=== PATIENT | male | born 1945 | race Caucasian/White ===

== ENCOUNTER 2024-05-04 07:55 | Day surgery (SDC) | payer MEDICARE, BC ==
[2024-04-30 12:21] LABS: BASOPHILS % (AUTO) 0.1 % (0-1); LYMPHOCYTES # (AUTO) 1.8 X10'3 (1.1-4.8); LYMPHOCYTES % (AUTO) 40.6 % (21-51); MEAN CORPUSCULAR HEMOGLOBIN 32.9 PG (27.0-31.0); MEAN CORPUSCULAR HGB CONC 33.8 g/dL (33.0-36.5); MEAN CORPUSCULAR VOLUME 97.3 FL (78-98); MEAN PLATELET VOLUME 6.7 FL (7.4-10.4); MONOCYTES # (AUTO) 0.3 X10'3 (0-0.9); MONOCYTES % (AUTO) 7.2 % (2-12); NEUTROPHILS # (AUTO) 2.3 X10'3 (1.8-7.7); NEUTROPHILS % (AUTO) 51.1 % (42-75); PRE OP HEMATOCRIT 37.8 % (42.0-52.0); PRE OP HEMOGLOBIN 12.8 g/dL (14.0-17.9); PRE OP PLATELET COUNT 160 X10'3 (140-440); PRE OP WHITE BLOOD COUNT 4.4 10'3 (4.8-10.8); RED BLOOD COUNT 3.89 X10'6 (4.70-6.10); RED CELL DISTRIBUTION WIDTH 13.5 % (11.5-14.5)
[2024-04-30 12:49] LABS: ALBUMIN 3.9 G/DL (3.4-5.0); ALBUMIN/GLOBULIN RATIO 1.1 (1.1-1.5); ALKALINE PHOSPHATASE 69 IU/L (46-116); BLOOD UREA NITROGEN 27 MG/DL (7-18); BUN/CREATININE RATIO 22.1 (10.0-20.0); CALCIUM 8.6 MG/DL (8.5-10.1); CHLORIDE 109 MMOL/L (99-107); CREATININE 1.22 MG/DL (0.60-1.10); PRE OP ALT 24 U/L (30-65); PRE OP ANION GAP 7 (8-16); PRE OP AST 11 U/L (10-37); PRE OP BILIRUB, TOTAL 0.5 MG/DL (0.0-1.0); PRE OP GLUCOSE 115 MG/DL (70-104); PRE OP POTASSIUM 4.5 MMOL/L (3.4-5.1); PRE OP SODIUM 142 MMOL/L (135-145); TOTAL CARBON DIOXIDE 26.2 MMOL/L (24-32); TOTAL PROTEIN 7.3 G/DL (6.4-8.2); eGFR 57 ML/MIN
[~2024-05-04] VITALS: Ht 177.8 cm; Wt 95.7 kg
[2024-05-04] MEDS: DOCUMENT DATE & TIME OF BETA-BLOCKER PO ONE (05:30)
[~2024-05-04 07:55] MED LIST: APIX5TAB3 PO; DOXA4TAB94 PO; LOSA-416 PO; NEBI5TAB9 PO; famotidine 20mg tablet PO ONE; ringers solution, lacted 1,000 ML IV SCH
[2024-05-04] MEDS ORDERED: LIDOcaine 2% (20mg/ml) 5ml vial ONE (08:28)
[2024-05-04] MEDS ORDERED: BUPIVAcaine/PF 2.5mg/ml (0.25%) 10ml vial ONE (08:28)
[2024-05-04 09:06] VITALS: RESP 15; O2SAT 95
[2024-05-04 09:13] VITALS: BP 127/66; PULSE 47; RESP 15; TEMP 97.6; O2SAT 95
[2024-05-04] MEDS: ceFAZolin 2gm in dextrose, iso 50 ML IV ONE (09:15)
[2024-05-04] MEDS ORDERED: fentaNYL/PF 50MCG/1 ML 2ML syringe ONE (09:20)
[2024-05-04] MEDS ORDERED: propofol inj 20 ML IV ONE (09:39)
[2024-05-04] MEDS ORDERED: LIDOcaine 0.5% (5mg/ml) 50ml vial ONE (09:39)
[2024-05-04] MEDS ORDERED: midazolam 1 mg/ML 2ml injection ONE (09:39)
[2024-05-04] MEDS ORDERED: enalaprilat 1.25mg/ml 2ml vial IV PRN (10:00)
[2024-05-04] MEDS ORDERED: morphine 4 MG/ML inj SYRINge IV PRN (10:00)
[2024-05-04] MEDS ORDERED: proCHLORperazine 10 MG/2 ml inj IV PRN (10:00)
[2024-05-04] MEDS ORDERED: ringers solution, lacted 1,000 ML IV SCH (10:00)
[2024-05-04] MEDS ORDERED: ondansetron/PF 4mg/2ml inj IV PRN (10:00)
[2024-05-04] MEDS ORDERED: hydrALAZINE 20mg/ml inj. IV PRN (10:00)
[2024-05-04] MEDS ORDERED: HYDROmorphone/PF 0.2 MG/ML SYRINGE IV PRN ×2 (10:00)
[2024-05-04] MEDS ORDERED: meperidine/PF 25mg/ml syringe IV PRN (10:00)
[2024-05-04] MEDS ORDERED: morphine 2 MG/ML inj. syringe IV PRN (10:00)
[2024-05-04] MEDS ORDERED: acetaminophen 1,000mg/100ml IV 100 ML IV ONE (10:00)
[2024-05-04 10:10] VITALS: BP 149/77; PULSE 46; RESP 16; O2SAT 96
[2024-05-04 10:20] VITALS: BP 149/86; PULSE 42; RESP 13; O2SAT 96
[2024-05-04 10:30] VITALS: BP 167/82; PULSE 44; RESP 13; O2SAT 95
[2024-05-04 10:50] VITALS: BP 157/80; PULSE 46; RESP 15; O2SAT 95
== END 2024-05-04 11:00 | disposition home or self-care (01) ==
LOC: PAS 07:55
PROVIDERS: ATTEND Orthopaedic Surgery Hand Surgery
DX: M72.0 Palmar fascial fibromatosis [Dupuytren] (principal); I10 Essential (primary) hypertension; Z79.899 Other long term (current) drug therapy; Z87.891 Personal history of nicotine dependence; Z98.890 Other specified postprocedural states; Z91.018 Allergy to other foods
CPT/HCPCS: 26123; 26125; 36415; 80053; 82948; 85025; A4215; A4618; A6449; A7000; J0690; J2003; J2250; J2704; J3010; J7030; J7120; Z7506; Z7508; Z7512; Z7610; J3490